=== PATIENT | male | born 1945 | race Caucasian/White ===

== ENCOUNTER → 2018-12-14 | Outpatient (CLI) | payer MEDICARE, OTHER ==
[2018-01-07 10:58] VITALS: BP 155/79
[~2018-12-14] MED LIST: ATOR10TA PO; CARV12.5 PO; CARV12.511 PO; CARV6.2511 PO; CELE200C PO; CHOL10003 PO; DICL100G18 TP; FINA5TAB4 PO; FURO40TA4 PO; GARL5000 PO; HYDR-3135 PO; HYDR200T5 PO; KRIL1CAP5 PO; LIDO700A4 TD; LOSA-73 PO; MONT10TA6 PO; MONT10TA9 PO; MULT1TAB52 PO; OMEG1CAP6 PO; OMEG500C PO; OXYC1TAB15 PO; POLY255P11 PO; POTA10TA12 PO; TAMS0.4C2 PO; TIZA4TAB PO; WARF-78 PO; WARF1TAB74 PO; WARF3TAB50 PO; WARF7.5T45 PO; ZOLPIDEM 5 MG TABLET. PO ONE
--- NOTE | 2018-12-17 16:03 | SLEEP ---
DATE OF STUDY: 12/14/2018 REFERRING PHYSICIAN: Dr. Fly Vargas. The patient is 73 years old who weighs 258 pounds with a BMI of 36. The patient's [place] score was 10. The patient underwent a split night study performed at [facility]. During the night study, the patient spent 399 minutes in bed and slept for 284 minutes with a sleep efficiency of 71%. Sleep latency was 29 minutes with a REM latency of 88 minutes. Overall, sleep architecture showed increased stage 1 sleep, reduced stage 2 sleep, increased slow wave sleep and normal REM sleep. During the initial diagnostic portion of the study, the patient slept for 113 minutes. During that time, there were no obstructive, central or mixed apneas, but there were 53 hypopneas. The patient's apnea-hypopnea index was 28 per hour. Supine sleep was not seen during the diagnostic portion. REM AHI was 56 per hour. EKG monitoring revealed irregular rhythm consistent with AFib. He was paced rhythm. Average heart rate 79 beats per minute. Nocturnal oximetry study revealed a mean oxygen saturation of 96%, the lowest of 74%. 23% of time, oxygen saturation remained between 80% and 89%. No PLMs observed. The patient met the criteria for CPAP initiation. He was started at 5 cm water and titrated up to 9 cm water. At the final pressure, the patient slept for 51 minutes. The patient had a lateral sleep. No REM sleep observed. The patient's AHI was reduced to 0 per hour and oxygen saturation remained above 90%. The patient used small sized full face mask. IMPRESSION: 1. Moderate sleep apnea-hypopnea syndrome with worsening during rapid eye movement sleep. Total apnea hypopnea index 28 per hour with a rapid eye movement apnea hypopnea index of 56 per hour. 2. Nocturnal hypoxia secondary to obstructive sleep apnea, but resolved with CPAP. 3. Abnormal EKG consistent with atrial fibrillation. Appeared to be paced rhythm. 4. No clinically significant periodic limb movements. RECOMMENDATIONS: 1. CPAP at 9 cm water completely eliminated the patient's sleep apnea and should be used on a nightly basis. 2. Follow up in 4-6 weeks to assess compliance with CPAP and to document clinical improvement. 3. Weight loss is strongly advised. 4. Avoid [employer] depressants. 5. Caution regarding driving until symptoms of sleep apnea resolve with the use of CPAP. 6. The patient should follow up with Cardiology regarding abnormal EKG if clinically indicated. JONAS MALAGON MD DR: SUPRIYA/renee JOB#: [id number] / [id number] FLY Guthrie MD
== END | disposition home or self-care (01) ==
LOC: SLPLAB 19:02
PROVIDERS: ATTEND Family Medicine
DX: G47.33 Obstructive sleep apnea (adult) (pediatric) (principal); R09.02 Hypoxemia
CPT/HCPCS: 95810

== ENCOUNTER 2019-01-05 22:10 | Emergency (ER) | payer MEDICARE ==
[~2019-01-05] VITALS: Ht 180.3 cm; Wt 114.3 kg
[~2019-01-05 22:10] MED LIST changes: -ZOLPIDEM 5 MG TABLET. PO ONE
[2019-01-05] MEDS ORDERED: amLODIPine BESYLATE 5 MG TABLET PO ONE (22:45)
--- NOTE | 2019-01-05 22:49 | PHYS DOC ---
Past Medical History Past Medical History: A-Fib, Arthritis, Hypertension, Other Additional Past Medical Histor: KIDNEY DISEASE Past Surgical History: Knee Replacement, Tonsillectomy, Other Additional Past Surgical Histo: BACK, L HIP,RIGHT HIP Alcohol Use: Occasionally Drug Use: None Adult General Chief Complaint Chief Complaint: HYPERTENSION HPI HPI Patient is a 73 year old M who presents with hypertension that has been going on since earlier today. He went to his doctor earlier where his blood pressure was 184/97. He later went to [facility] where he took his blood pressure and it was 218/104. He denies headache, chest pain, vision changes, nausea, vomiting, abdominal pain, back pain, urinary changes, and bowel changes. He has a known history of HTN and Stage 1 or 2 CKD. Review of Systems Review of Systems Constitutional: Denies fever or chills [] Eyes: Denies change in visual acuity, redness, or eye pain [] HENT: Denies nasal congestion or sore throat [] Respiratory: Denies cough or shortness of breath [] Cardiovascular: No additional information not addressed in HPI [] GI: Denies abdominal pain, nausea, vomiting, bloody stools or diarrhea [] : Denies dysuria or hematuria [] Musculoskeletal: Denies back pain or joint pain [] Integument: Denies rash or skin lesions [] Neurologic: Denies headache, focal weakness or sensory changes [] Endocrine: Denies polyuria or polydipsia [] All other systems were reviewed and found to be within normal limits, except as documented in this note. Current Medications Current Medications Current Medications Medications (Trade) Dose Ordered Sig/Aki Start Time Stop Time Status Last Admin Dose Admin Amlodipine Besylate (Norvasc) 10 mg 1X ONCE 01/05/19 22:45 01/05/19 22:46 DC 01/05/19 22:46 10 MG Clonidine HCl (Catapres) 0.2 mg 1X ONCE 01/05/19 23:45 01/05/19 23:46 DC 01/05/19 23:50 0.2 MG Labetalol HCl (Normodyne Iv Push) 20 mg 1X ONCE 01/06/19 00:30 01/06/19 00:31 DC 01/06/19 00:48 20 MG Allergies Allergies Allergies Coded Allergies Type Severity Reaction Last Updated Verified No Known Drug Allergies 01/07/18 No Physical Exam Physical Exam Constitutional: Well developed, well nourished, no acute distress, non-toxic appearance. [] HENT: Normocephalic, atraumatic, bilateral external ears normal, oropharynx mois t, no oral exudates, nose normal. [] Eyes: PERRLA, EOMI, conjunctiva normal, no discharge. [] Neck: Normal range of motion, no tenderness, supple, no stridor. [] Cardiovascular:Heart rate regular rhythm, no murmur [] Lungs & Thorax: Bilateral breath sounds clear to auscultation [] Abdomen: Bowel sounds normal, soft, no tenderness, no masses, no pulsatile masses. [] Skin: Warm, dry, no erythema, no rash. [] Back: No tenderness, no CVA tenderness. [] Extremities: No tenderness, no cyanosis, no clubbing, ROM intact, no edema. [] Neurologic: Alert and oriented X 3, normal motor function, normal sensory function, no focal deficits noted. [] Psychologic: Affect normal, judgement normal, mood normal. [] Current Patient Data Vital Signs Vital Signs Date Time Temp Pulse Resp B/P (MAP) Pulse Ox O2 Delivery O2 Flow Rate FiO2 01/06/19 01:04 75 18 97 01/06/19 00:48 199/92 01/05/19 22:20 98.2 Room Air 98.2 Lab Values Laboratory Tests Test 01/05/19 23:00 White Blood Count 8.4 x10^3/uL (4.0-11.0) Red Blood Count 4.13 x10^6/uL (4.30-5.70) L Hemoglobin 11.9 g/dL (13.0-17.5) L Hematocrit 35.6 % (39.0-53.0) L Mean Corpuscular Volume 86 fL (79-100) Mean Corpuscular Hemoglobin 29 pg (25-35) Mean Corpuscular Hemoglobin Concent 34 g/dL (31-37) Red Cell Distribution Width 14.1 % (11.5-14.5) Platelet Count 238 x10^3/uL (140-400) Neutrophils (%) (Auto) 67 % (31-73) Lymphocytes (%) (Auto) 21 % (24-48) L Monocytes (%) (Auto) 10 % (0-9) H Eosinophils (%) (Auto) 2 % (0-3) Basophils (%) (Auto) 1 % (0-3) Neutrophils # (Auto) 5.6 x10^3uL (1.8-7.7) Lymphocytes # (Auto) 1.8 x10^3/uL (1.0-4.8) Monocytes # (Auto) 0.8 x10^3/uL (0.0-1.1) Eosinophils # (Auto) 0.1 x10^3/uL (0.0-0.7) Basophils # (Auto) 0.0 x10^3/uL (0.0-0.2) Prothrombin Time 29.9 SEC (11.7-14.0) H Prothrombin Time INR 2.9 (0.8-1.1) H Sodium Level 141 mmol/L (136-145) Potassium Level 3.8 mmol/L (3.5-5.1) Chloride Level 105 mmol/L (98-107) Carbon Dioxide Level 27 mmol/L (21-32) Anion Gap 9 (6-14) Blood Urea Nitrogen 23 mg/dL (8-26) Creatinine 1.3 mg/dL (0.7-1.3) Estimated GFR (Cockcroft-Gault) 54.1 BUN/Creatinine Ratio 18 (6-20) Glucose Level 102 mg/dL (70-99) H Calcium Level 8.9 mg/dL (8.5-10.1) Total Bilirubin 0.3 mg/dL (0.2-1.0) Aspartate Amino Transferase (AST) 18 U/L (15-37) Alanine Aminotransferase (ALT) 21 U/L (16-63) Alkaline Phosphatase 69 U/L (46-116) Total Protein 7.8 g/dL (6.4-8.2) Albumin 3.6 g/dL (3.4-5.0) Albumin/Globulin Ratio 0.9 (1.0-1.7) L Laboratory Tests 01/05/19 23:00 Laboratory Tests 01/05/19 23:00 Radiology/Procedures Radiology/Procedures [] Course & Med Decision Making Course & Med Decision Making Pertinent Labs and Imaging studies reviewed. (See chart for details) []73-year-old male presenting with asymptomatic hypertension blood pressure did eventually come down with a dose of labetalol we tried some oral agents first. Patient's lab work is essentially unremarkable Coumadin is therapeutic he did report some bright red blood per rectum over the last few months he thinks it is hemorrhoids apparently his doctor is referring to GI this is been going on for a long-standing basis labs are not consistent with anything requiring admission patient is comfortable with discharge home will follow-up with primary doctor in the next couple of days for reevaluation of blood pressure. Again there is no chest pain no headache no shortness of breath no signs of end organ dysfunction Dragon Disclaimer Dragon Disclaimer This electronic medical record was generated, in whole or in part, using a voice recognition dictation system. Departure Departure Impression: Primary Impression: Elevated blood pressure reading Disposition: HOME, SELF-CARE Condition: STABLE Referrals: FLY LIN MD (PCP) ARIANNA AREVALO MD January 05, 2019 22:49
[2019-01-05 23:12] LABS: BASO % 1 % (0-3); EOS # 0.1 x10^3/uL (0.0-0.7); EOS % 2 % (0-3); HEMATOCRIT 35.6 % (39.0-53.0); HEMOGLOBIN 11.9 g/dL (13.0-17.5); LYMPH # 1.8 x10^3/uL (1.0-4.8); LYMPH % 21 % (24-48); MEAN CORPUSCULAR HEMOGLOBIN 29 pg (25-35); MEAN CORPUSCULAR HGB CONC 34 g/dL (31-37); MEAN CORPUSCULAR VOLUME 86 fL (79-100); MONO # 0.8 x10^3/uL (0.0-1.1); MONO % 10 % (0-9); NEUT # 5.6 x10^3uL (1.8-7.7); NEUT % 67 % (31-73); PLATELET COUNT 238 x10^3/uL (140-400); RED BLOOD COUNT 4.13 x10^6/uL (4.30-5.70); RED CELL DISTRIBUTION WIDTH 14.1 % (11.5-14.5); WHITE BLOOD COUNT 8.4 x10^3/uL (4.0-11.0)
[2019-01-05 23:20] LABS: PROTHROMBIN TIME PATIENT 29.9 SEC (11.7-14.0)
[2019-01-05 23:22] LABS: CALCIUM 8.9 mg/dL (8.5-10.1); CREATININE 1.3 mg/dL (0.7-1.3); GFR 54.1; POTASSIUM 3.8 mmol/L (3.5-5.1)
[2019-01-05 23:28] LABS: ALBUMIN 3.6 g/dL (3.4-5.0); ALBUMIN/GLOBULIN RATIO 0.9 (1.0-1.7); TOTAL BILIRUBIN 0.3 mg/dL (0.2-1.0); TOTAL PROTEIN 7.8 g/dL (6.4-8.2)
[2019-01-05] MEDS ORDERED: cloNIDine HCL 0.1 MG TABLET PO ONE (23:45)
[2019-01-06] MEDS ORDERED: LABETALOL 20 MG/4 ML DISP.SYRIN. IVP ONE (00:30)
[2019-01-06 01:04] VITALS: BP 184/81
== END 2019-01-06 01:15 | disposition home or self-care (01) ==
LOC: ER 22:10
DX: I10 Essential (primary) hypertension (principal); I48.91 Unspecified atrial fibrillation; M19.90 Unspecified osteoarthritis, unspecified site; Z90.89 Acquired absence of other organs; Z96.659 Presence of unspecified artificial knee joint
CPT/HCPCS: 36415; 80053; 85025; 85610; 96374; 99284; J3490

== ENCOUNTER → 2019-09-15 | Outpatient (CLI) | payer MEDICARE ==
[~2019-09-15] MED LIST changes: +MONT10TA49 PO; -MONT10TA6 PO; -MONT10TA9 PO; -POTA10TA12 PO; +POTASSIUM CHLO10 ME1 PO; -TIZA4TAB PO; +TIZA4TAB2 PO
--- NOTE | 2019-09-15 12:01 | KCIC ---
MRI Lumbar Spine without contrast History: Lumbar radiculopathy, bilateral lower extremity radiculopathy, previous surgery, back pain for about 2 weeks Technique: Multiplanar, multi sequential noncontrast MR imaging was performed of the lumbar spine. Comparison: None Findings: There is superior L3 endplate concavity with associated marrow edema more eccentric to the right, not associated with significant osseous retropulsion. There are scattered small nonedematous Schmorl's nodes superiorly and inferiorly of L2 and L4 and also inferiorly of L1. There is very minimal posterior subluxation L4 relative to L5. Conus terminates at L1. There is moderate degenerative disc disease at L5-S1 and more eccentric to the right at L4-5, mild disc desiccation of more superior levels. There are annular tears such as anteriorly and posteriorly at L3-4 and L5-S1. There is hemangioma of the left L2 vertebral body, probable tiny foci L4 and on the right at T12. Not fully included, there are some exophytic foci of signal change of the mid to inferior right kidney, largest on the order of about 8 cm, visualized portions hyperintense on T2 sequence although there may be more heterogeneous signal of the larger more lateral focus. L1-L2: Spinal canal and neural foramina are adequate. L2-L3: There is mild buckling of the ligamentum flavum and facet degenerative change. There is negligible disc osteophyte complex and bulge. Spinal canal and neural foramina are overall adequate. L3-L4: There is negligible posterior bulge. There is minimal buckling of the ligamentum flavum. There is very mild narrowing of the far lateral recesses greater on the left, central canal overall adequate. Neural foramina are adequate. L4-L5: There is left laminectomy defect. There is minimal disc osteophyte complex and probable minimal bulge superimposed on the posteriorly subluxed L4 vertebral body margin, mild indentation upon the ventral thecal sac. There is mild narrowing of the far lateral recesses bilaterally, central canal adequate. Left neural foramen is adequate, minimal narrowing of the right neural foramen by facet and disc osteophyte complex. L5-S1: There is minimal likely partially calcified bulge/protrusion. There is some deformity of the left lamina which may be a postsurgical basis. Spinal canal is overall adequate. There is very minimal disc osteophyte complex in the inferior neural foramina, mild narrowing of the inferior right neural foramen with light contact of the exiting right L5 nerve root without displacement. Left neural foramen is not significantly narrowed. Impression: 1. There is superior L3 endplate concavity with associated marrow edema suggestive of more recent compression injury, no osseous retropulsion. 2. There is degenerative disc disease at L4-5 and L5-S1, mild spondylosis. There is no significant lumbar spinal stenosis, minimal narrowing of the far lateral recesses bilaterally at L3-4 and L4-5. 3. There are some exophytic foci of signal change of the right kidney which are not fully included. Ultrasound evaluation or pre and postcontrast CT evaluation is recommended. Electronically signed by: Jerry Rosas MD (09/15/2019 11:58 AM) [email or web address]
== END | disposition home or self-care (01) ==
LOC: KCIC MRI 10:37
PROVIDERS: ATTEND Internal Medicine
DX: M51.17 Intervertebral disc disorders with radiculopathy, lumbosacral region (principal); M25.78 Osteophyte, vertebrae; M48.061 Spinal stenosis, lumbar region without neurogenic claudication
CPT/HCPCS: 72148

== ENCOUNTER 2019-10-17 23:56 | Emergency (ER) | payer MEDICARE ==
[~2019-10-17] VITALS: Ht 180.3 cm; Wt 122.7 kg
[2019-10-18 00:30] VITALS: BP 194/83
[2019-10-18] MEDS ORDERED: IPRATRPIUM/ALBUTEROL 0.5/2.5MG 3 ML NEBU. NEB ONE (00:30)
[2019-10-18 00:51] LABS: BASO % 0 % (0-3); EOS # 0.2 x10^3/uL (0.0-0.7); EOS % 2 % (0-3); HEMATOCRIT 39.3 % (39.0-53.0); HEMOGLOBIN 13.5 g/dL (13.0-17.5); LYMPH # 1.1 x10^3/uL (1.0-4.8); LYMPH % 12 % (24-48); MEAN CORPUSCULAR HEMOGLOBIN 29 pg (25-35); MEAN CORPUSCULAR HGB CONC 34 g/dL (31-37); MEAN CORPUSCULAR VOLUME 86 fL (79-100); MONO # 1.3 x10^3/uL (0.0-1.1); MONO % 14 % (0-9); NEUT # 6.9 x10^3/uL (1.8-7.7); NEUT % 72 % (31-73); PLATELET COUNT 177 x10^3/uL (140-400); RED BLOOD COUNT 4.59 x10^6/uL (4.30-5.70); RED CELL DISTRIBUTION WIDTH 15.4 % (11.5-14.5); WHITE BLOOD COUNT 9.5 x10^3/uL (4.0-11.0)
[2019-10-18 01:03] LABS: CALCIUM 8.6 mg/dL (8.5-10.1); CREATININE 1.3 mg/dL (0.7-1.3); POTASSIUM 4.4 mmol/L (3.5-5.1)
--- NOTE | 2019-10-18 01:04 | EKG ---
[facility] [address] [place] [address] Test Date: 2019-10-18 Test Time: 00:56:12 Pat Name: DONG CORONADO Department: Room: Gender: M [employer]: : 1945 Requested By: JACKIE CAMPOS Order Number: [id number] Reading MD: Measurements Intervals [place] Rate: 73 P: DE: QRS: 12 QRSD: 90 T: 24 QT: 386 QTc: 429 Interpretive Statements IRREGULAR RHYTHM, NO P-WAVE FOUND NO SPECIFIC ECG ABNORMALITIES RI6.01 No previous ECG available for comparison
--- NOTE | 2019-10-18 01:08 | RAD ---
PORTABLE CHEST 1V History: Dyspnea Comparison: October 19, 2018 Findings: No consolidation or pleural effusion. Portal technique accentuates cardiac size. No pneumothorax. Impression: 1. No acute cardiopulmonary process. Electronically signed by: Alcon Brock DO (10/18/2019 1:05 AM) [id number]
[2019-10-18 01:18] LABS: ALBUMIN 3.5 g/dL (3.4-5.0); ALBUMIN/GLOBULIN RATIO 0.8 (1.0-1.7); TOTAL BILIRUBIN 0.7 mg/dL (0.2-1.0)
--- NOTE | 2019-10-18 01:21 | PHYS DOC ---
Past Medical History Past Medical History: A-Fib, Arthritis, Hypertension, Other Additional Past Medical Histor: KIDNEY DISEASE Past Surgical History: Knee Replacement, Tonsillectomy, Other Additional Past Surgical Histo: BACK, L HIP,RIGHT HIP Smoking Status: Former Smoker Alcohol Use: Occasionally Drug Use: None Adult General Chief Complaint Chief Complaint: SHORTNESS OF BREATH HPI HPI Patient is a 74 year old male who presents with three-day history of cough and chest congestion. Patient states that this evening he developed shortness of breath. Patient indicates that he has also had wheezing and states that shortness of breath is worsened with minimal exertion. He denies any chest pain but does admit to some tightness in his chest. He states that nothing is improving his symptoms at this time. He denies any fever. He states that cough has not been productive but he feels like he needs to get sputum up.[] Review of Systems Review of Systems Constitutional: Denies fever or chills [] Respiratory: Positive cough and shortness of breath [] Cardiovascular: No additional information not addressed in HPI [] GI: Denies abdominal pain, nausea, vomiting or diarrhea [] Integument: Denies rash or skin lesions [] Neurologic: Denies headache, focal weakness or sensory changes [] All other systems were reviewed and found to be within normal limits, except as documented in this note. Current Medications Current Medications Current Medications Medications (Trade) Dose Ordered Sig/Aki Start Time Stop Time Status Last Admin Dose Admin Albuterol/ Ipratropium (Duoneb) 3 ml 1X ONCE 10/18/19 00:30 10/18/19 00:31 DC 10/18/19 00:32 3 ML Furosemide (Lasix) 60 mg 1X ONCE 10/18/19 02:00 10/18/19 02:01 DC 10/18/19 02:00 60 MG Info (CONTRAST GIVEN -- Rx MONITORING) 1 each PRN DAILY PRN 10/18/19 02:15 10/20/19 02:14 Iohexol (Omnipaque 350 Mg/ml) 70 ml 1X ONCE 10/18/19 02:30 10/18/19 02:31 DC 10/18/19 02:39 70 ML Allergies Allergies Allergies Coded Allergies Type Severity Reaction Last Updated Verified No Known Drug Allergies 01/07/18 No Physical Exam Physical Exam Constitutional: Well developed, well nourished, no acute distress, non-toxic appearance. [] HENT: Normocephalic, atraumatic, bilateral external ears normal, oropharynx moist, no oral exudates, nose normal. [] Eyes: PERRLA, EOMI, conjunctiva normal, no discharge. [] Neck: Normal range of motion, no tenderness, supple. [] Cardiovascular: Regular rate and rhythm[] Lungs & Thorax: Coarse rhonchi are noted bilaterally to auscultation [] Abdomen: Bowel sounds normal, soft, no tenderness. [] Skin: Warm, dry, no erythema, no rash. [] Extremities: No tenderness, no cyanosis, no clubbing, ROM intact, with 2+ lower extremity pitting edema. [] Neurologic: Alert and oriented X 3, no focal deficits noted. [] Current Patient Data Vital Signs Vital Signs Date Time Temp Pulse Resp B/P (MAP) Pulse Ox O2 Delivery O2 Flow Rate FiO2 10/18/19 00:33 95 Room Air 10/18/19 00:30 98.7 64 24 211/94 (133) 98.7 Lab Values Laboratory Tests Test 10/18/19 00:25 White Blood Count 9.5 x10^3/uL (4.0-11.0) Red Blood Count 4.59 x10^6/uL (4.30-5.70) Hemoglobin 13.5 g/dL (13.0-17.5) Hematocrit 39.3 % (39.0-53.0) Mean Corpuscular Volume 86 fL (79-100) Mean Corpuscular Hemoglobin 29 pg (25-35) Mean Corpuscular Hemoglobin Concent 34 g/dL (31-37) Red Cell Distribution Width 15.4 % (11.5-14.5) H Platelet Count 177 x10^3/uL (140-400) Neutrophils (%) (Auto) 72 % (31-73) Lymphocytes (%) (Auto) 12 % (24-48) L Monocytes (%) (Auto) 14 % (0-9) H Eosinophils (%) (Auto) 2 % (0-3) Basophils (%) (Auto) 0 % (0-3) Neutrophils # (Auto) 6.9 x10^3/uL (1.8-7.7) Lymphocytes # (Auto) 1.1 x10^3/uL (1.0-4.8) Monocytes # (Auto) 1.3 x10^3/uL (0.0-1.1) H Eosinophils # (Auto) 0.2 x10^3/uL (0.0-0.7) Basophils # (Auto) 0.0 x10^3/uL (0.0-0.2) D-Dimer (Blank) 1.26 ug/mlFEU (0.00-0.50) H Sodium Level 138 mmol/L (136-145) Potassium Level 4.4 mmol/L (3.5-5.1) Chloride Level 102 mmol/L (98-107) Carbon Dioxide Level 28 mmol/L (21-32) Anion Gap 8 (6-14) Blood Urea Nitrogen 21 mg/dL (8-26) Creatinine 1.3 mg/dL (0.7-1.3) Estimated GFR (Cockcroft-Gault) 54.0 BUN/Creatinine Ratio 16 (6-20) Glucose Level 112 mg/dL (70-99) H Lactic Acid Level 0.6 mmol/L (0.4-2.0) Calcium Level 8.6 mg/dL (8.5-10.1) Total Bilirubin 0.7 mg/dL (0.2-1.0) Aspartate Amino Transferase (AST) 24 U/L (15-37) Alanine Aminotransferase (ALT) 23 U/L (16-63) Alkaline Phosphatase 77 U/L (46-116) Troponin I Quantitative < 0.017 ng/mL (0.000-0.055) TX-Vam-L-Type Natriuretic Peptide 2248 pg/mL (0-124) H Total Protein 8.0 g/dL (6.4-8.2) Albumin 3.5 g/dL (3.4-5.0) Albumin/Globulin Ratio 0.8 (1.0-1.7) L Laboratory Tests 10/18/19 00:25 Laboratory Tests 10/18/19 00:25 EKG EKG EKG demonstrates normal sinus rhythm with rate of 73.[] Radiology/Procedures Radiology/Procedures [] Impressions: PROCEDURE: PORTABLE CHEST 1V PORTABLE CHEST 1V History: Dyspnea Comparison: October 19, 2018 Findings: No consolidation or pleural effusion. Portal technique accentuates cardiac size. No pneumothorax. Impression: 1. No acute cardiopulmonary process. Electronically signed by: Alcon Brock DO (10/18/2019 1:05 AM) [id number] CT ANGIOGRAPHY CHEST History: Cough. Congestion. Technique: CT of the chest was performed with contrast. PE protocol. Maximum intensity projection coronal and sagittal reconstructions were performed. Exposure: One or more of the following individualized dose reduction techniques were utilized for this examination: 1. Automated exposure control 2. Adjustment of the mA and/or kV according to patient size 3. Use of iterative reconstruction technique. Comparison: None Findings: Chest: No pulmonary embolism. No aortic aneurysm or dissection. Mildly enlarged mediastinal and hilar lymph nodes. Mild left lower lobe opacity with surrounding groundglass opacities. Left upper lobe tree-in-bud nodularity. Bronchial wall thickening. Mild centrilobular emphysema. 2 mm left upper lobe pulmonary nodule (image 88). 2 mm left lower lobe pulmonary nodule (image 100). Upper abdomen: Partially imaged bilateral renal hypodensities. Prior cholecystectomy. Bones: No pathologic osseous lesions. Impression: 1. No pulmonary embolism. 2. Small left lower lobe opacity with adjacent groundglass opacities and left upper lobe tree-in-bud nodularity, may represent infectious or inflammatory process. Recommend follow-up to ensure resolution. 3. Bronchial wall thickening, may indicate bronchitis. 4. Mild mediastinal and hilar lymphadenopathy, likely reactive. Recommend attention on follow-up. 5. Bilateral renal hypodensities partially imaged, likely cysts. Recommend comparison with prior imaging studies. Renal ultrasound can further evaluate if clinically indicated. 6. Small pulmonary nodules. Recommend one-year follow-up if high risk. Electronically signed by: Alcon Brock DO (10/18/2019 3:09 AM) [id number] Course & Med Decision Making Course & Med Decision Making Pertinent Labs and Imaging studies reviewed. (See chart for details) [] Dragon Disclaimer Dragon Disclaimer This electronic medical record was generated, in whole or in part, using a voice recognition dictation system. Departure Departure Impression: Primary Impression: Right upper lobe pneumonia Disposition: HOME, SELF-CARE Condition: STABLE Referrals: FLY LIN MD (PCP) Patient Instructions: Pneumonia, Adult Scripts Methylprednisolone (MEDROL) 4 Mg Tab.ds.pk 1 PKG PO UD, #1 PKG Prov: JACKIE CAMPOS Jr., DO 10/18/19 Amoxicillin/Potassium Clav (AUGMENTIN 875-125 TABLET) 1 Each Tablet 1 TAB PO BID for 10 Days, #20 TAB 0 Refills Prov: JACKIE CAMPOS Jr. DO 10/18/19 Problem Qualifiers Primary Impression: Right upper lobe pneumonia Pneumonia type: due to unspecified organism Qualified Codes: J18.9 - Pneumonia, unspecified organism JACKIE CAMPOS Jr. DO Oct 18, 2019 01:21
[2019-10-18] MEDS ORDERED: FUROSEMIDE 40 MG/4 ML VIAL. IVP ONE (02:00)
[2019-10-18] MEDS ORDERED: CONTRAST GIVEN. MC PRN (02:15)
[2019-10-18] MEDS ORDERED: IOHEXOL 350 MG/ML 100 ML VIAL. IV ONE (02:30)
--- NOTE | 2019-10-18 03:12 | RAD ---
CT ANGIOGRAPHY CHEST History: Cough. Congestion. Technique: CT of the chest was performed with contrast. PE protocol. Maximum intensity projection coronal and sagittal reconstructions were performed. Exposure: One or more of the following individualized dose reduction techniques were utilized for this examination: 1. Automated exposure control 2. Adjustment of the mA and/or kV according to patient size 3. Use of iterative reconstruction technique. Comparison: None Findings: Chest: No pulmonary embolism. No aortic aneurysm or dissection. Mildly enlarged mediastinal and hilar lymph nodes. Mild left lower lobe opacity with surrounding groundglass opacities. Left upper lobe tree-in-bud nodularity. Bronchial wall thickening. Mild centrilobular emphysema. 2 mm left upper lobe pulmonary nodule (image 88). 2 mm left lower lobe pulmonary nodule (image 100). Upper abdomen: Partially imaged bilateral renal hypodensities. Prior cholecystectomy. Bones: No pathologic osseous lesions. Impression: 1. No pulmonary embolism. 2. Small left lower lobe opacity with adjacent groundglass opacities and left upper lobe tree-in-bud nodularity, may represent infectious or inflammatory process. Recommend follow-up to ensure resolution. 3. Bronchial wall thickening, may indicate bronchitis. 4. Mild mediastinal and hilar lymphadenopathy, likely reactive. Recommend attention on follow-up. 5. Bilateral renal hypodensities partially imaged, likely cysts. Recommend comparison with prior imaging studies. Renal ultrasound can further evaluate if clinically indicated. 6. Small pulmonary nodules. Recommend one-year follow-up if high risk. Electronically signed by: Alcon Brock DO (10/18/2019 3:09 AM) [id number]
[2019-10-18] MEDS ORDERED: METH4TAB2 PO (03:22)
[2019-10-18] MEDS ORDERED: AMOX1TAB61 PO (03:22)
[2019-10-18 03:40] LABS: INFLUENZA A PATIENT NEGATIVE (NEGATIVE); INFLUENZA B PATIENT NEGATIVE (NEGATIVE)
[2019-10-18] MEDS ORDERED: AMOXICILLIN/K CLAV 875/125MG TABLET. PO ONE (04:00)
== END 2019-10-18 03:44 | disposition home or self-care (01) ==
LOC: ER 23:56
DX: J18.9 Pneumonia, unspecified organism (principal); I48.91 Unspecified atrial fibrillation; I10 Essential (primary) hypertension; Z87.891 Personal history of nicotine dependence
CPT/HCPCS: 36415; 71045; 71275; 80053; 83605; 83880; 84484; 85025; 85379; 87040; 87804; 93005; 94640; 96374; 99285; J1940; Q9967

== ENCOUNTER 2020-09-29 00:09 | Emergency (ER) | payer MEDICARE ==
[~2020-09-29] VITALS: Ht 177.8 cm; Wt 117.3 kg
[~2020-09-29 00:09] MED LIST changes: +AMOX1TAB61 PO; -DICL100G18 TP; +DICL100G54 TP; +METH4TAB2 PO; +MULT-445 PO; -MULT1TAB52 PO; -WARF-78 PO; +WARF1TAB2 PO; -WARF1TAB74 PO; +WARF5TAB2 PO
--- NOTE | 2020-09-29 01:01 | PHYS DOC ---
Past Medical History Past Medical History: A-Fib, Arthritis, Hypertension, Other Additional Past Medical Histor: KIDNEY DISEASE Past Surgical History: Knee Replacement, Tonsillectomy, Other Additional Past Surgical Histo: BACK, L HIP,RIGHT HIP Smoking Status: Former Smoker Alcohol Use: Occasionally Drug Use: None Adult General Chief Complaint Chief Complaint: UPPER EXTREMITY PAIN HPI HPI Patient is a 75 year old with a past medical history of A. fib, arthritis, hypertension, history of right rotator cuff tear now presenting emergency department complaining of new onset of right-sided shoulder pain. Patient states 4 hours prior to arrival he was getting out of bed when he pulled his right arm. And then noted some significant pain of the right lateral shoulder and right deltoid. Has been since having difficulty moving the right shoulder on the right elbow. Denies any numbness or tingling in the area. Denies any head injury or neck pain. Denies any nausea, vomiting, fever, chills, chest pain or shortness of breath Review of Systems Review of Systems Constitutional: Denies fever or chills [] Eyes: Denies change in visual acuity, redness, or eye pain [] HENT: Denies nasal congestion or sore throat [] Respiratory: Denies cough or shortness of breath [] Cardiovascular: No additional information not addressed in HPI [] GI: Denies abdominal pain, nausea, vomiting, bloody stools or diarrhea [] : Denies dysuria or hematuria [] Musculoskeletal: Denies back pain or joint pain [] Integument: Denies rash or skin lesions [] Neurologic: Denies headache, focal weakness or sensory changes [] Endocrine: Denies polyuria or polydipsia [] All other systems were reviewed and found to be within normal limits, except as documented in this note. Current Medications Current Medications Current Medications Medications (Trade) Dose Ordered Sig/Aki Start Time Stop Time Status Last Admin Dose Admin Acetaminophen/ Hydrocodone Bitart (Lortab 5/325) 2 tab 1X ONCE 09/29/20 01:30 09/29/20 01:31 DC 09/29/20 01:07 2 TAB Ketorolac Tromethamine (Toradol 15mg Vial) 15 mg 1X ONCE 09/29/20 01:30 09/29/20 01:31 DC 09/29/20 01:09 15 MG Prednisone (Prednisone) 50 mg 1X ONCE 09/29/20 01:30 09/29/20 01:31 DC 09/29/20 01:08 50 MG Allergies Allergies Allergies Coded Allergies Type Severity Reaction Last Updated Verified No Known Drug Allergies 01/07/18 No Physical Exam Physical Exam Constitutional: Well developed, well nourished, no acute distress, non-toxic appearance. [] HENT: Normocephalic, atraumatic, bilateral external ears normal, oropharynx moist, no oral exudates, nose normal. [] Eyes: PERRLA, EOMI, conjunctiva normal, no discharge. [] Neck: Normal range of motion, no tenderness, supple, no stridor. [] Cardiovascular:Heart rate regular rhythm, no murmur [] Lungs & Thorax: Bilateral breath sounds clear to auscultation [] Abdomen: Bowel sounds normal, soft, no tenderness, no masses, no pulsatile masses. [] Skin: Warm, dry, no erythema, no rash. [] Back: No tenderness, no CVA tenderness. [] Extremities: Severe tenderness over the right lateral deltoid and anterior deltoid as well as in the anterior bicep., no cyanosis, no clubbing, ROM intact, no edema. Neurovascularly intact Neurologic: Alert and oriented X 3, normal motor function, normal sensory function, no focal deficits noted. [] Psychologic: Affect normal, judgement normal, mood normal. [] Current Patient Data Vital Signs Vital Signs Date Time Temp Pulse Resp B/P (MAP) Pulse Ox O2 Delivery O2 Flow Rate FiO2 09/29/20 01:07 20 96 Room Air 09/29/20 00:59 98.0 67 144/58 (86) 98.0 EKG EKG [] Radiology/Procedures Radiology/Procedures XR SHOULDER_RIGHT 2+ VIEWS 09/29/2020 1:11 AM INDICATION: Shoulder injury COMPARISON: None available. TECHNIQUE: 2 views the right shoulder are provided. FINDINGS/ IMPRESSION: Mild acromioclavicular osteoarthrosis. There is no acute fracture or dislocation. Bone mineralization is within normal limits. Regional soft tissues are within normal limits. There is no soft tissue gas or osseous erosion. No radiopaque foreign body. Electronically signed by: Marylu Sadler MD (09/29/2020 1:30 AM) [facility] Course & Med Decision Making Course & Med Decision Making Pertinent Labs and Imaging studies reviewed. (See chart for details) 75M with significant right-sided shoulder pain most consistent with an acute rotator cuff injury. X-ray was obtained without any evidence of fracture or dislocation. At this time will place the patient in sling and treat symptomatically and discharge patient with orthopedic surgery follow-up Gualberto Disclaimer [place] Disclaimer This electronic medical record was generated, in whole or in part, using a voice recognition dictation system. Departure Departure Impression: Primary Impression: Rotator cuff tear, right Disposition: 01 DC HOME SELF CARE/HOMELESS Condition: GOOD Referrals: NADEEM ORTEGA MD Patient Instructions: Rotator Cuff Injury Additional Instructions: EMERGENCY DEPARTMENT GENERAL DISCHARGE INSTRUCTIONS Thank you for coming to [facility] Emergency Department (ED) today and trusting us with you care. We trust that you had a positive experience in our Emergency Department. If you wish to speak to the department management, you may call the Director at [phone]. YOUR FOLLOW UP INSTRUCTIONS ARE FOLLOWS: 1. Do you have a private Doctor? If you do not have a private doctor, please ask for a resource list of physicians or clinics that may be able to assist you with follow up care. 2. The Emergency Physicain has interpreted your x-rays. The X-Ray specialist will also review them. If there is a change in the findings, you will be notified in 48 hours when at all possible. 3. A lab test or culture has been done, your results will be reviewed and you will be notified if you need a change in treatment. ADDITIONAL INSTRUCTIONS AND INFORMATION: 1. Your care today has been supervised by a physician who is specially trained in emergency care. Many problems require more than one evaluation for a complete diagnosis and treatment. We recommend that you schedule your follow up appointment as recommended to ensure complete treatment of you illness or injury. If you are unable to obtain follow up care and continue to have a problem, or if your condition worsens, we recommend that you return to the ED. 2. We are not able to safely determine your condition over the phone nor are we able to give sound medical advice over the phone. For these safety reasons, if you call for medical advice we will ask you to come to the ED for further evaluation. 3. If you have any questions regarding these discharge instructions please call the ED at [phone]. SAFETY INFORMATION: In the interest of safety, wellness, and injury prevention; we encourage you to wear your sealbelt, if you smoke; quite smoking, and we encourage family to use a protective helmet for bicycling and other sporting events that present an increased risk for head injury. IF YOUR SYMPTOMS WORSEN OR NEW SYMPTOMS DEVELOP, OR YOU HAVE CONCERNS ABOUT YOUR CONDITION; OR IF YOUR CONDITION WORSENS WHILE YOU ARE WAITING FOR YOUR FOLLOW UP APPOINTMENT; EITHER CONTACT YOUR PRIMARY CARE DOCTOR, THE PHYSICIAN WHOSE NAME AND NUMBER YOU WERE GIVEN, OR RETURN TO THE ED IMMEDIATELY. Scripts Tramadol Hcl (TRAMADOL HCL) 100 Mg Tbmp.24hr 1 TAB PO PRN DAILY PRN for pain MDD 1 Tablet(s) for 30 Days, #30 TAB 0 Refills Prov: CHRISTIANO BUCIO MD 09/29/20 CHRISTIANO BUCIO MD Sep 29, 2020 01:01
[2020-09-29 01:30] VITALS: BP 135/75
[2020-09-29] MEDS ORDERED: HYDROcodone/APAP 5/325MG 1 TAB TABLET PO ONE (01:30)
[2020-09-29] MEDS ORDERED: predniSONE 10 MG TABLET PO ONE (01:30)
[2020-09-29] MEDS ORDERED: KETOROLAC 15 MG/ML VIAL. IM ONE (01:30)
--- NOTE | 2020-09-29 01:32 | RAD ---
XR SHOULDER_RIGHT 2+ VIEWS 09/29/2020 1:11 AM INDICATION: Shoulder injury COMPARISON: None available. TECHNIQUE: 2 views the right shoulder are provided. FINDINGS/ IMPRESSION: Mild acromioclavicular osteoarthrosis. There is no acute fracture or dislocation. Bone mineralization is within normal limits. Regional soft tissues are within normal limits. There is no soft tissue gas or osseous erosion. No radiopaque foreign body. Electronically signed by: Marylu Sadler MD (09/29/2020 1:30 AM) [facility]
[2020-09-29] MEDS ORDERED: TRAM100T2 PO (01:38)
[2020-09-29] MEDS ORDERED: PRED20TA PO (01:53)
== END 2020-09-29 01:58 | disposition home or self-care (01) ==
LOC: ER 00:09
DX: M75.101 Unspecified rotator cuff tear or rupture of right shoulder, not specified as traumatic (principal); I48.91 Unspecified atrial fibrillation; I10 Essential (primary) hypertension; Z87.891 Personal history of nicotine dependence; X50.9XXA Other and unspecified overexertion or strenuous movements or postures, initial encounter; Y93.89 Activity, other specified; Y92.89 Other specified places as the place of occurrence of the external cause; Y99.8 Other external cause status
CPT/HCPCS: 73030; 96372; 99283; A4565; J1885; J7512

== ENCOUNTER → 2020-10-11 | Outpatient (CLI) | payer MEDICARE ==
[2020-09-29 01:30] VITALS: BP 135/75
[~2020-10-11] MED LIST changes: +PRED20TA PO; +TRAM100T2 PO
--- NOTE | 2020-10-11 14:32 | KCIC ---
ADDENDUM #[address] Trevino with Dr. Mchugh' nurse at 2:40 PM on 10/11/2020. Electronically signed by: Jennifer Trevino MD (10/11/2020 2:42 PM) [id number] ORIGINAL REPORT EXAM: MRI RIGHT SHOULDER WITHOUT CONTRAST INDICATION: Right shoulder pain and swelling. Chronic right shoulder pain, worsening COMPARISON: None TECHNIQUE: Multiplanar, multisequence imaging of the right shoulder without contrast. FINDINGS: Exam is limited by motion artifact. ROTATOR CUFF: Large complete or near-complete full-thickness tear of the supraspinatus tendon with re traction of articular sided fibers are to near the glenoid and bursal sided fibers to the mid humeral head. There may be some far posterior fibers intact. There is at least severe tendinopathy of the in fraspinatus tendon with probable partial thickness tear. There is fluid dissecting into the infraspin atus myotendinous junction. There is a full-thickness tear of the cranial subscapularis tendon superi mposed on tendinopathy. Teres minor tendon is intact. There is moderate atrophy of the supraspinatus, infraspinatus, and cranial subscapularis muscle. Mild edema of the infraspinatus muscle LABRUM: Diffuse labral tearing. BICEPS TENDON: There is a large longitudinal split tear of the biceps tendon as it exits the joint. T he torn tendon is subluxed medially and perched on the bicipital groove. Tendinopathy and tenosynovit is of the extra articular biceps tendon. ACROMIOCLAVICULAR JOINT: Mild acromioclavicular degenerative joint disease. Type II acromion without downsloping. GLENOHUMERAL JOINT: Probable scattered mild cartilage along the superior and superomedial humeral hea d. No large or full-thickness cartilage defect of the humeral head. There is possible cartilage loss along the glenoid, evaluation of which is very limited due to motion artifact. There is a cyst and fo ruiz surrounding marrow edema at the posterior superior humeral head. Otherwise normal marrow signal. No significant osteophyte formation. OTHER: Very large complex joint effusion communicating with there large amount of blood bursal fluid. Intramuscular fluid collection in the deltoid muscle laterally measuring 3.3 x 2.5 x 1.3 (image 11, series 4). IMPRESSION: 1. Large complex joint effusion communicating with very large amount of complex fluid in the subacrom ial-subdeltoid bursa. This could be reactive to large full-thickness rotator cuff tear but it greater than expected and could also be hematoma or septic arthritis/bursitis. Recommend correlation with fl uid sampling. 3. Fluid collection in the deltoid muscle laterally most likely intramuscular tear/hematoma although infection is also possible. 4. Complete or near-complete tear of the supraspinatus tendon with retraction and fatty atrophy, as d escribed. Severe tendinopathy of the infraspinatus tendon with probable partial-thickness articular s ided tearing. Full-thickness tear of the cranial subscapularis tendon. 5. Large longitudinal split tear of the biceps tendon, subluxed medially and perched on the bicipital groove. Mild tendinopathy and tenosynovitis of the extra articular biceps tendon. Diffuse labral tea ring. 6. Evaluation of cartilage is limited due to motion however there appears to be relatively mild carti jose loss and relatively minimal degenerative changes compared to the rest of the findings. Electronically signed by: Jennifer Trevino MD (10/11/2020 2:29 PM) [id number]
== END ==
LOC: KCIC MRI 09:03
PROVIDERS: ATTEND Orthopaedic Surgery
DX: S46.811A Strain of other muscles, fascia and tendons at shoulder and upper arm level, right arm, initial encounter (principal); M19.011 Primary osteoarthritis, right shoulder; M25.411 Effusion, right shoulder; X58.XXXA Exposure to other specified factors, initial encounter; Y93.89 Activity, other specified; Y92.89 Other specified places as the place of occurrence of the external cause; Y99.8 Other external cause status; Z68.36 Body mass index [BMI] 36.0-36.9, adult
CPT/HCPCS: 73221

== ENCOUNTER → 2020-10-11 | Outpatient (CLI) | payer MEDICARE ==
[2020-09-29 01:30] VITALS: BP 135/75
== END ==
LOC: SPEC 17:04
PROVIDERS: ATTEND Orthopaedic Surgery
DX: M25.40 Effusion, unspecified joint (principal)
CPT/HCPCS: 87071; 87075

== ENCOUNTER → 2021-11-23 | Outpatient (CLI) | payer MEDICARE ==
[~2021-11-23] MED LIST changes: +REGADENOSON 0.4 MG/5 ML DISP.SYRIN. IV ONE; +TIZA-75 PO; -TIZA4TAB2 PO; +TRAM100T10 PO; -TRAM100T2 PO
--- NOTE | 2021-11-23 18:05 | RAD ---
MR#: [id number] Date of Study: 11/23/2021 Ordering Physician: ANTONIO HENDRIX, Referring Physician: DEREK DEE Tech: RICARDO Bland ARRT (Christa) (N) APPROVED REPORT Test Type: Pharmacological Stress Nurse/Tech: Sonali Burnett RN Test Indications: Dyspnea on Exertion Cardiac History: Hypertension,a-fib,kidney disease Medications: See Electronic Medical Record Medical History: See Electronic Medical Record Resting ECG: A-fib Resting Heart Rate: 50 bpm Resting Blood Pressure: 168/61mmHg Pretest Chest Pain: No chest pain Nurse/Tech Notes Irregular and lungs diminished in the bases. Consent: The procedure was explained to the patient in lay terms. Informed consent was witnessed. Wesley eout was entered into [employer]. History and Stress Test performed by RICARDO Bland ARRT (Christa) (N) Pharm. Details Pharmacologic stress testing was performed using 0.4mg per 5ml of regadenoson given intravenously ove r 7-10 seconds. Stress Symptoms No chest pain or symptoms. POST EXERCISE Reason for Termination: Infusion complete Target HR: No Max HR: 77 bpm 63% of Maximum Predicted HR: 122 bpm Max Blood Pressure: 192/77mmHg Blood Pressure response to exercise: Normal blood pressure response during stress. Heart Rate response to exercise: WNL Chest Pain: No. Arrhythmia: No. ST Change: No. INTERPRETATION Stress EKG Conclusion: Baseline EKG showed atrial fibrillation. Nondiagnostic changes at peak stress . No other arrhythmias. Imaging Protocol IMAGE PROTOCOL: Rest Tc-99m/stress Tc-99m 1 day Rest: Stress: Viability: Radiopharm.Tc99m MegjaqohaTm28p Sestamibi Dose10.4mCi 31mCi Img Date 11/23/2021 11/23/2021 Inj-Img [id number]. 90min. Rest Admin Site:IV - Right AntecubitalAdministrator:RICARDO Bland ARRT (Christa)(N) Stress Admin Site: IV - Right AntecubitalAdministrator: Jammie Brock, NMTCB, ARRT (R)(N) STRESS DATA End Diast. Vol.190.0mlLVEDV index BSA83.0ml End Syst. Vol.81.0mlLVESV index BSA35.0ml Myocardial Qytu163.0gEject. Nephxijj11.0% Stress Scores Regional WT1.00Summed WT3.00 Regional WM0.00Summed WM8.00 Study quality was good. Left Ventricular size was Normal at Rest and Stress. Lung uptake was . Left Ventricular ejection fraction is 62%. The rest and stress images show normal perfusion, normal contraction and thickening. LV Perfusion Of note, there was mild TID of 1.31. LV Perf. Quant 17 Seg. SSS1.00 17 Seg. SRS3.00 17 Seg. SDS0.00 Stress Defect Extent (% LAD)0.00Rest Defect Extent (% LAD)0.00Rev. Defect Extent (% LAD)0.00 Stress Defect Extent (% LCX) 0.00Rest Defect Extent (% LCX)11.30Rev. Defect Extent (% LCX)0.00 Stress Defect Extent (% RCA)10.00Rest Defect Extent (% RCA)7.80Rev. Defect Extent (% RCA)4.40 Stress Defect Extent (% JUDIT)2.00Rest Defect Extent (% JUDIT)4.60Rev. Defect Extent (% JUDIT)0.90 Conclusion 1. Regadenoson cardioisotope stress test did not show any evidence of ischemia or infarct. There was mild TID of 1.31. 2. Normal left ventricular systolic function with ejection fraction calculated at 62%. Signed by : Antonio Hnedrix, Electronically Approved : 11/23/2021 18:04:40
== END ==
LOC: NM 13:47
PROVIDERS: ATTEND Internal Medicine Cardiovascular Disease
DX: R06.09 Other forms of dyspnea (principal); I25.10 Atherosclerotic heart disease of native coronary artery without angina pectoris
CPT/HCPCS: 78452; 93017; A9500; J2785

== ENCOUNTER → 2021-12-18 | Outpatient (CLI) | payer MEDICARE ==
[~2021-12-18] MED LIST changes: -REGADENOSON 0.4 MG/5 ML DISP.SYRIN. IV ONE
--- NOTE | 2021-12-18 17:28 | CARD ---
MR#: [id number] Date of Study: 12/18/2021 Ordering Physician: ANTONIO SUE, Referring Physician: Rosy DEE: Niharika Langford [facility] APPROVED REPORT EXAM: Two-dimensional and M-mode echocardiogram with Doppler and color Doppler. Other Information Quality : AverageHR: 63bpm Rhythm : NSRTechnically limited study due to body habitus. INDICATION Dyspnea 2D DIMENSIONS RVDd4.1 (2.9-3.5cm)Left Atrium(2D)4.7 (1.6-4.0cm) IVSd1.6 (0.7-1.1cm)Aortic Root(2D)3.0 (2.0-3.7cm) LVDd5.3 (3.9-5.9cm)LVOT Diameter2.4 (1.8-2.4cm) PWd0.9 (0.7-1.1cm)LVDs3.6 (2.5-4.0cm) FS (%) 31.2 %SV86.6 ml LVEF(%)55.5 (>50%) Aortic Valve AoV Peak Bernabe.127.1cm/Meri Peak GR.6.5mmHg LVOT Peak Bernabe.86.5cm/s Mitral Valve MV E Ofwmnleh397.3cm/sMV DECEL PNAH046uq MV A Hciuqyrr618.4cm/sE/A Ratio1.1 Pulmonary Valve PV Peak Rkcisaxf97.8cm/sPV Peak Grad.5mmHg Tricuspid Valve TR P. Yihyvmcl678yh/sRAP WTMAHDRH3eqAq TR Peak Gr.09pdSjXCLP59jrSe LEFT VENTRICLE The Left Ventricle is mildly dilated. There is normal left ventricular wall thickness. Left ventricul ar systolic function is normal. The left ventricular ejection fraction is within the normal range. EF 55% There is normal LV segmental wall motion. Tissue Doppler imaging reveals moderate left ventricul ar diastolic dysfunction. No left ventricle thrombus noted on this study. There is no ventricular sep mckenzie defect visualized. There is no left ventricular aneurysm. There is no mass noted in the left vent ricle. RIGHT VENTRICLE The right ventricle is moderately to severely dilated. There is normal right ventricular wall thickne ss. The right ventricular systolic function is normal. ATRIA The left atrium is moderately dilated. The right atrium is moderately dilated. The interatrial septum is intact with no evidence for an atrial septal defect or patent foramen ovale as noted on 2-D or Do ppler imaging. AORTIC VALVE The aortic valve is normal in structure and function. No aortic regurgitation is present. There is no aortic valvular stenosis. There is no aortic valvular vegetation. MITRAL VALVE The mitral valve is normal in structure and function. There is no evidence of mitral valve prolapse. There is no mitral valve stenosis. Doppler and color-flow analysis was not performed. TRICUSPID VALVE The tricuspid valve is normal in structure and function. Doppler and Color Flow revealed mild tricusp id regurgitation. The pulmonary artery systolic pressure is estimated at 40-50 mmHg. There is no tric uspid valve prolapse or vegetation. There is no tricuspid valve stenosis. PULMONIC VALVE There is no pulmonic valvular regurgitation. There is no pulmonic valvular stenosis. GREAT VESSELS The aortic root is normal in size. The ascending aorta is normal in size. The IVC is normal in size a nd collapses >50% with inspiration. PERICARDIAL EFFUSION There is no pleural effusion. There is no evidence of significant pericardial effusion. Critical Notification Critical Value: No <Conclusion> Left ventricular systolic function is normal. The left ventricular ejection fraction is within the no rmal range. EF 55% There is normal LV segmental wall motion. Doppler and Color Flow revealed mild tricuspid regurgitation. The pulmonary artery systolic pressure is estimated at 40-50 mmHg. Signed by : Babak Young, Electronically Approved : 12/18/2021 17:28:33
== END ==
LOC: ECHO 10:48
PROVIDERS: ATTEND Internal Medicine Cardiovascular Disease
DX: I07.1 Rheumatic tricuspid insufficiency (principal); R06.09 Other forms of dyspnea
CPT/HCPCS: 93306; C8929